=== PATIENT | female | born 1950 | race Caucasian/White ===

== ENCOUNTER 2016-11-03 06:56 | Day surgery (SDC) | payer MEDICARE ==
[2016-11-01 09:14] VITALS: BMI 25.8
[~2016-11-03 06:56] MED LIST: ALPRAZolam 0.25 MG TAB PO PRN; ALPRAZolam 0.5 MG TAB PO PRN; ASPIRIN 325 MG TAB PO STA; ATORVASTATIN 80 MG TAB PO STA; NITROGLYCERIN SL TABS 0.4 MG TAB SUBLINGUAL PRN; SODIUM CHLORIDE 0.9% 1,000 ML in EMPTY BAG 1 BAG IV ONE
[2016-11-03 07:55] VITALS: RESP 16; TEMP 97.7
[2016-11-03] MEDS ORDERED: LIDOCAINE 2% INJ 20 MG/ML (20 ML MDV) ONE (08:15)
[2016-11-03] MEDS ORDERED: fentaNYL (PF) 50 MCG/ML 2 ML AMP ONE (08:15)
[2016-11-03] MEDS ORDERED: LIDOCAINE 2% INJ 20 MG/ML SQ ONE (08:16)
[2016-11-03] MEDS ORDERED: SODIUM CHLORIDE 0.9% 1,000 ML IV ONE (08:20)
[2016-11-03] MEDS ORDERED: fentaNYL (PF) 50 MCG/ML 2 ML AMP IV ONE (08:22)
[2016-11-03] MEDS ORDERED: NITROGLYCERIN 1000MCG/10ML SYRINGE INTRACORON ONE (08:28)
[2016-11-03] MEDS ORDERED: IOHEXOL 350 MG/ML 100 ML BOTTLE INJ ONE (08:35)
[2016-11-03] MEDS ORDERED: RX INFO: IV CONTRAST WAS GIVEN 1 EACH MISC MISCELLANE PRN (08:47)
[2016-11-03] MEDS ORDERED: SODIUM CHLORIDE 0.9% 1,000 ML IV SCH (09:00)
[2016-11-03] MEDS ORDERED: Acetaminophen-Codeine 300-30mg TAB ONE (09:44)
--- NOTE | 2016-11-03 10:40 | CC ---
DATE OF SERVICE: Mrs. Mendes is a 66-year-old female with known history of hypertension, hyperlipidemia who has been complaining of episode of chest discomfort. She had an abnormal myocardial perfusion imaging with evidence of inferior wall ischemia. In view of that, recommendation was made regarding cardiac catheterization. The procedure as well as the risks and complications were discussed with the patient who is in full understanding and agreement. PROCEDURE: Patient was brought to the director labor standards in a fasting semi-sedated state. There was no IV access so in view of that, a 5-Icelandic sheath was introduced in the right femoral vein and a 6-Icelandic sheath was introduced in the right femoral artery. Selective right and left coronary angiography was performed using 6-Icelandic 4 bend right and left Mildred catheter. Multiple view of the coronary arteries including hemiaxial views were obtained. Following that, a 6-Icelandic right pigtail catheter was introduced in the left ventricle and a 30-degree ROGERS view of the left ventricle was obtained. Following that, the femoral artery catheter was removed. Hemostasis was obtained with compression of the right groin. There were no immediate complications. Patient was returned to her room in stable condition. FINDINGS: LEFT MAIN: This is a large-size vessel bifurcating into left circumflex and left anterior descending artery. Left main coronary artery is without any evidence of high-grade stenosis. LEFT ANTERIOR DESCENDING ARTERY: This is a large-size vessel giving rise to a large diagonal branch. The left anterior descending artery tapers down distally and has no evidence of high-grade stenosis. LEFT CIRCUMFLEX: This is a nondominant vessel, giving rise to 3 obtuse marginal branches. The left circumflex as well as the branches have no evidence of obstructive coronary artery disease. RIGHT CORONARY ARTERY: This is a dominant vessel, large in caliber, giving rise to a large PDA. The right coronary artery as well as its branches have no evidence of obstructive coronary artery disease. There was catheter-induced spasm proximally that resolved after receiving intracoronary nitroglycerin. LEFT VENTRICULOGRAM: Left ventriculogram was performed in 30-degree ROGERS view and revealed normal left ventricular size and systolic function. Ejection fraction 60%. There was no evidence of significant mitral regurgitation. HEMODYNAMICS: There was no gradient across the aortic valve. The left ventricular end-diastolic pressure was 18 mmHg. CONCLUSION: 1. Normal coronary arteries. 2. Normal left ventricular size and systolic function. RECOMMENDATIONS: In view of finding anatomy, I recommend to continue medical therapy with aggressive coronary risk factor modifications that have been initiated. Those findings and recommendations were discussed with the patient and her family and are in full understanding and agreement.
--- NOTE | 2016-11-03 10:44 | LTR ---
November 03, 2016 KAYLAH CARR MD RE: Marquita Mendes Dear Dr. Carr: I had the opportunity to perform cardiac catheterization on Mrs. Mendes at [facility] on the october and a full copy of the procedure note will be forwarded to you. In brief, she was found to have no evidence of obstructive coronary artery disease with preserved left ventricular size and systolic function. Based on those findings, I recommended to continue medical therapy with the aggressive coronary risk factor modifications that have been initiated. Thank you again for allowing me the opportunity to participate in her care. Please feel free to call for any questions. Sincerely yours, JEZ ALONSO MD
[2016-11-03] MEDS ORDERED: ACETAMINOPHEN TAB 325 MG TAB ONE (14:35)
[2016-11-03 14:41] VITALS: BP 110/55; PULSE 75
[2016-11-04] MEDS ORDERED: METOPROLOL SUCCINATE (ER) 25 MG TAB.ER.24H PO SCH (09:00)
[2016-11-04] MEDS ORDERED: POTASSIUM CHLORIDE ER 10 MEQ TAB.ER.PRT PO SCH (09:00)
[2016-11-04] MEDS ORDERED: CALCIUM CARBONATE 500 MG CHEWABLE PO SCH (09:00)
[2016-11-04] MEDS ORDERED: CYANOCOBALAMIN 500 MCG TAB PO SCH (09:00)
[2016-11-04] MEDS ORDERED: LISINOPRIL 10 MG TAB PO SCH (09:00)
[2016-11-04] MEDS ORDERED: ASPIRIN 81 MG CHEW PO SCH (09:00)
[2016-11-04] MEDS ORDERED: ATORVASTATIN 40 MG TAB PO SCH (09:00)
[2016-11-04] MEDS ORDERED: CHOLECALCIFEROL 1,000 UNIT TAB PO SCH (09:00)
[2016-11-04] MEDS ORDERED: MULTIVITAMINS, THERA 1 EACH TAB PO SCH (09:00)
== END 2016-11-03 17:02 | disposition home or self-care (01) ==
LOC: CATHCVL 06:56 → EDBD 07:30 → CATHCVL 17:02
PROVIDERS: ATTEND Internal Medicine Interventional Cardiology
DX: R94.39 Abnormal result of other cardiovascular function study (principal); R07.89 Other chest pain; I10 Essential (primary) hypertension; E78.2 Mixed hyperlipidemia; E78.00 Pure hypercholesterolemia, unspecified; Z82.49 Family history of ischemic heart disease and other diseases of the circulatory system; Z79.82 Long term (current) use of aspirin; Z79.2 Long term (current) use of antibiotics; Z79.899 Other long term (current) drug therapy; Z87.891 Personal history of nicotine dependence
CPT/HCPCS: 93458; C1894 ×2; C1769; J2001; Q9967; J3010

== ENCOUNTER → 2022-08-29 | Outpatient (CLI) | payer MEDICARE ==
[2022-08-29 10:24] LABS: Basophils % (A) 0 %; Eosinophils # (A) 0.2 k/uL (0-0.7); Eosinophils % (A) 3 %; HGB 12.7 gm/dL (11.4-16.0); Lymphocytes # (A) 1.7 k/uL (1.0-4.8); Lymphocytes % (A) 28 %; MCH 35.7 pg (25.0-35.0); MCHC 34.4 g/dL (31.0-37.0); Macrocytosis Slight; Mean Platelet Volume 7.6; Monocytes # (A) 0.3 k/uL (0-1.0); Monocytes % (A) 5 %; Neutrophils # (A) 3.6 k/uL (1.3-7.7); Neutrophils % (A) 62 %; Platelet Count 303 k/uL (150-450); RBC 3.56 m/uL (3.80-5.40); RDW 12.6 % (11.5-15.5); WBC 5.9 k/uL (3.8-10.6)
[2022-08-29 12:37] LABS: Total Eosinophil Count 147 #EOS/uL (150-300)
[2022-08-30 20:48] LABS: Alternaria alternata IgE <0.10 kU/L; Aspergillus fumagatus IgE <0.10 kU/L; Birch IgE <0.10 kU/L; Cat Epith & Dander IgE <0.10 kU/L; Cladosporian herbarum IgE <0.10 kU/L; Cockroach IgE <0.10 kU/L; Dermato. farinae IgE 0.75 kU/L; Dog Dander IgE <0.10 kU/L; Elm IgE <0.10 kU/L; Maple (Box Elder) IgE <0.10 kU/L; Oak IgE <0.10 kU/L; Ragweed,Common IgE <0.10 kU/L; Red Top (Bentgrass) IgE <0.10 kU/L
== END | disposition home or self-care (01) ==
LOC: LABWHC1 09:14
PROVIDERS: ATTEND Internal Medicine
DX: T78.40XD Allergy, unspecified, subsequent encounter (principal)
CPT/HCPCS: 36415; 82785; 85008; 85025; 86003